=== PATIENT | female | born 1950 | race American Indian/Alaskan Native ===

== ENCOUNTER 2016-10-31 06:35 | Inpatient (IN) | payer MEDICARE ==
[2016-10-31] MEDS ORDERED: XYLOCAINE MPF 2% ONE (08:02)
[2016-10-31] MEDS ORDERED: NEO SYNEPHRINE ONE (08:02)
[2016-10-31] MEDS ORDERED: NACL 0.9% 100 ML ONE (08:02)
[2016-10-31] MEDS ORDERED: ROBINUL ONE ×2 (08:02→13:30)
[2016-10-31] MEDS ORDERED: ZOFRAN ONE (08:02)
[2016-10-31] MEDS ORDERED: SUBLIMAZE ONE (08:03)
[2016-10-31] MEDS ORDERED: DILAUDID ONE (08:03)
[2016-10-31] MEDS ORDERED: VERSED ONE (08:03)
[2016-10-31] MEDS ORDERED: DIPRIVAN 10 MG/ML 1,000 MG/100 ML BOTTLE IV ONE (08:12)
[2016-10-31] MEDS: NACL 0.9% 1000 ML 1,000 ML IV SCH ×2 (08:18→19:11)
--- NOTE | 2016-10-31 08:37 | Anesthesia Day of Surgery ---
Anesthesia Day of Surgery - Day of Surgery Patient Examined: Yes Patient H&P Reviewed: Yes Patient is NPO: Yes Beta Blockers: Yes
--- NOTE | 2016-10-31 08:37 | Anesthesia Consultation ---
Anesthesia Consult and Med Hx Date of service: 10/31/16 - Airway Anesthetic Teeth Evaluation: Poor, Chipped (multiple missing teeth upper and lower), Partials ROM Head & Neck: Adequate Mental/Hyoid Distance: Inadequate Mallampati Class: Class III Intubation Access Assessment: Possibly Difficult - Pulmonary Exam CTA: Yes - Cardiac Exam Cardiac Exam: RRR - Pre-Operative Health Status ASA Pre-Surgery Classification: ASA3 Proposed Anesthetic Plan: MAC - Pulmonary Hx Smoking: No Hx Sleep Apnea: No (high risk) - Cardiovascular System Hx Hypertension: Yes Hx Percutaneous Transluminal Coronary Angioplasty (PTCA): Yes (no stents placed , no CAD observed) Hx Peripheral Vascular Disease: No - Central Nervous System Hx Neuromuscular Disorder: No Hx Psychiatric Problems: No - Gastrointestinal Hx Gastroesophageal Reflux Disease: Yes (moderate ) - Endocrine Hx Renal Disease: No (malignant left kidney cancer) Hx Insulin Dependent Diabetes: No - Hematic Hx Anemia: No Hx Sickle Cell Disease: No - Other Systems Hx Alcohol Use: No Hx Substance Use: No Hx Cancer: Yes (left malignant kidney cancer) Hx Obesity: Yes
[2016-10-31 08:38] LABS: Basophils % (Auto) 1.1 % (0.0-1.8); Eosinophils % (Auto) 2.4 % (0.0-4.3); Hematocrit 36.8 % (30.3-42.9); Hemoglobin 11.9 gm/dl (10.1-14.3); Mean Corpuscular HGB Conc 32 % (30-34); Mean Corpuscular Hemoglobin 28 pg (28-32); Mean Corpuscular Volume 88 fl (79-97); Platelet Count 207 K/mm3 (140-440); Red Blood Count 4.18 M/mm3 (3.65-5.03); Red Cell Distribution Width 14.7 % (13.2-15.2)
[2016-10-31 08:51] LABS: Anion Gap 15 mmol/L; Blood Urea Nitrogen 22 mg/dL (7-17); Calcium 8.9 mg/dL (8.4-10.2); Carbon Dioxide 24 mmol/L (22-30); Glucose 109 mg/dL (65-100); Potassium 3.8 mmol/L (3.6-5.0); Sodium 139 mmol/L (137-145)
[2016-10-31 09:02] LABS: INR 1.03 (0.87-1.13)
[2016-10-31 09:03] LABS: Partial Thromboplastin Time 32.8 Sec. (24.2-36.6)
[2016-10-31] MEDS ORDERED: LEVAQUIN 500MG/100ML 500 MG/100 ML BAG IV ONE (09:14)
[2016-10-31] MEDS ORDERED: LEVAQUIN 500MG/100ML 500 MG/100 ML BAG IV NR (10:00)
[2016-10-31] MEDS ORDERED: DECADRON ONE (13:00)
[2016-10-31] MEDS ORDERED: PROAIR IH ONE (13:00)
[2016-10-31] MEDS ORDERED: NEOSTIGMINE ONE (13:30)
[2016-10-31] MEDS ORDERED: ePHEDrine SULFATE ONE (13:32)
--- NOTE | 2016-10-31 13:34 | Short Stay Summary ---
Short Stay Documentation Date of service: 10/31/16 Narrative H&P: 66 year old female with left-sided small renal cell carcinoma who presents for percutaneous cryotherapy of the left RCC. - History H&P: obtained from office - Allergies and Medications Current Medications: Allergies No Known Allergies Allergy (Verified 10/31/16 08:01) Home Medications Medication Instructions Recorded Confirmed Last Taken Type AtorvaSTATin [Lipitor] 80 mg PO DAILY 10/31/16 10/31/16 10/31/16 History Hydralazine HCl [Apresoline TAB] 100 mg PO BID 10/31/16 10/31/16 10/31/16 History Metoprolol Tartrate [Metoprolol 100 mg PO BID 10/31/16 10/31/16 10/31/16 History Tartrate] Sertraline HCl [Zoloft] 100 mg PO DAILY 10/31/16 10/31/16 10/31/16 History cloNIDine [Catapres] 0.1 mg PO BID 10/31/16 10/31/16 10/31/16 History Active Medications Sodium Chloride (Nacl 0.9% 1000 Ml) 1,000 mls @ 42 mls/hr IV DIRECT [facility] Last Admin: 10/31/16 08:18 Dose: 42 mls/hr - Physical exam General appearance: no acute distress HEENT: EOMI Lungs: Normal air movement Gastrointestinal: normal - Brief post op/procedure progress note Date of procedure: 10/31/16 Pre-op diagnosis: Left RCC Post-op diagnosis: same Procedure: Percutaneous CT-guided cryoablation of the left renal cell carcinoma Anesthesia: GETA Surgeon: ISABELL VIDAL Estimated blood loss: minimal Condition: stable - Hospital course Hospital course: 66-year-old female status post left percutaneous CT-guided cryoablation of the left RTC. Will be admitted overnight for to assess for any postoperative issues such as bleeding. Patient tolerated the procedure without issue. No perinephric hematoma on CT on postprocedural imaging. Dr. Dillard saw the patient who was without any significant acute distress. Some mild expected pain. Discharged without issue with post ablation antiemetics , pain medication, and antibiotics. - Disposition Condition at discharge: Stable Disposition: [id number] TO HOME OR SELFCARE - Discharge Diagnoses (1) Renal cell carcinoma of left kidney Status: Acute Short Stay Discharge Plan Activity: advance as tolerated Weight Bearing Status: Weight Bear as Tolerated Diet: renal Wound: keep clean and dry Follow up with: PRIYA COBURN MD [Primary Care Provider] - 7 Days Prescriptions: Ciprofloxacin HCl [Ciprofloxacin TAB] 500 mg PO Q12HR #14 tab Docusate Sodium [Colace] 100 mg PO BID #40 capsule Ondansetron [Zofran Odt] 4 mg PO Q8HR #60 tab.rapdis oxyCODONE /ACETAMINOPHEN [Percocet 5/325 mg] 1 tab PO Q6HR PRN #60 tablet PRN Reason: Pain Promethazine [Phenergan] 25 mg VA Q6HR PRN #60 supp.rect PRN Reason: Nausea Sennosides [Senna] 8.6 mg PO BID #40 tablet
--- NOTE | 2016-10-31 13:37 | Operative Report ---
Operative Report Operative Report: EXAM: 1. Percutaneous CT-guided cryoablation of a left-sided renal cell carcinoma DATE: 10/31/16 [employer]IV[employer] ENGINEERING PROJECT DESIGNER: ISABELL VIDAL MD INDICATION: Left-sided renal cell carcinoma measuring approximately 2 cm in diameter on CT scan who presents for percutaneous therapy of the left-sided renal cell carcinoma. ANESTHESIA: GETA MEDICATIONS: Please see nursing report for full details. DEVICES: 1. IcePearl 2.1 CX 90 needle 2. IceSphere 90 needle CONTRAST: None. PROCEDURE: The risks, benefits, and alternatives were discussed with the patient and her ; written informed consent was obtained. The patient was brought to the CT suite in stable condition. She was then intubated by anesthesiology, and positioned in a prone position on the CT gantry table. The grid was applied to the left flank and the renal cell carcinoma was identified using CT guidance. Localization lead process engineer CT was performed. This is performed for localization purposes, and not for diagnostic purposes. The area was prepped and draped in a sterile fashion. The skin was anesthetized with lidocaine. 22-gauge Chiba needle was used to identify the correct positioning to access the left-sided renal cell carcinoma. Using tandem trocar technique, an IcePearl prior ablation probe was advanced under direct CT guidance into the left-sided renal cell carcinoma. An additional cryoablation probe, the IceSphere ablation probe, was advanced under direct CT guidance into the left-sided renal cell carcinoma. After appropriately surrounding the lesion with the cryoablation probes, CT was performed confirming appropriate position. CT was performed demonstrating no evidence of perinephric hemorrhage. 10 minute active freezing was performed with both probes, and CT imaging was obtained during the active freeze demonstrating appropriate size of the ice ball. 15 minute passive thaw was allowed to occur. 10 minute active freezing was again performed with both probes and CT imaging was obtained during the active freeze demonstrating appropriate size of the ice ball. 15 minute active thaw was allowed to occur and cauterization was performed through the ablation probes. Afterwards, both probes were removed. CT was obtained demonstrating no evidence of perinephric hemorrhage. The patient tolerated the procedure well. No immediate postprocedural complication. FINDINGS: Successful cryoablation of the left-sided renal cell carcinoma using 2 cryoablation probes as described above. IMPRESSION: Successful cryoablation of the left-sided renal cell carcinoma using 2 cryoablation probes as described above.
[2016-10-31] MEDS ORDERED: DULCOLAX PR PRN (13:38)
[2016-10-31] MEDS ORDERED: ZOFRAN IV PRN (13:38)
[2016-10-31] MEDS ORDERED: MILK OF MAGNESIA PO PRN (13:38)
[2016-10-31] MEDS ORDERED: TYLENOL PO PRN (13:38)
[2016-10-31] MEDS ORDERED: NORCO 5/325 PO PRN (13:38)
--- NOTE | 2016-10-31 14:22 | Post Anesthesia Evaluation ---
- Post Anesthesia Evaluation Patient Participated: Yes Airway Patent: Yes Stable Respiratory Function: Yes Nausea/Vomiting: No Temp > 96.8F: Yes Pain Manageable: Yes Adequeate Hydration: Yes Anesthesia Complications: No Block Receding Appropriately: Not Applicable Patient on Ventilator: No
[2016-10-31] MEDS: COLACE PO SCH ×2 (17:42→22:16)
[2016-10-31] MEDS ORDERED: METOPROLOL TARTRATE 100 MG PO SCH (22:00)
[2016-10-31] MEDS ORDERED: HYDRALAZINE HCL 100 MG PO SCH (22:00)
[2016-10-31] MEDS: SENOKOT PO SCH (22:16)
[2016-10-31] MEDS: LOPRESSOR PO SCH (22:16)
[2016-10-31] MEDS: CATAPRES PO SCH (22:16)
[2016-10-31] MEDS: APRESOLINE PO SCH (22:17)
[2016-11-01 06:31] LABS: Hematocrit 37.2 % (30.3-42.9); Hemoglobin 11.9 gm/dl (10.1-14.3)
[2016-11-01] MEDS: SENOKOT PO SCH (09:17)
[2016-11-01] MEDS: LOPRESSOR PO SCH (09:17)
[2016-11-01] MEDS: APRESOLINE PO SCH (09:18)
[2016-11-01] MEDS: CATAPRES PO SCH (09:18)
[2016-11-01] MEDS: COLACE PO SCH (09:18)
[2016-11-01] MEDS ORDERED: SERTRALINE HCL 100 MG PO SCH (10:00)
[2016-11-01] MEDS ORDERED: ZOLOFT PO SCH (10:00)
--- NOTE | 2016-11-01 10:03 | Consultation ---
History of Present Illness - Reason for Consult Consult date: 11/01/16 Hypertension, s/p left renal cell ca Percutaneous cryotherapy Requesting physician: ISABELL VIDAL - History of Present Illness 66-year-old -Russian female with past medical history significant for hypertension, hyperlipidemia, CAD, left renal cell ca admitted yesterday after she has Perutaneous cryotherapy of the left renal cell ca. patient tolerated the procedure well, no pain, no bleeding. Blood pressure is well-controlled. Patient said her medications are updated. She is medically stable. REVIEW OF SYSTEMS: GENERAL: no weight change, no fatigue, no fever HEAD: no head ache EYES: no blurry vision, no acute visual loss EARS: no hearing loss, no discharge, no earache NOSE: no stuffiness, no sneezing, no discharge MOUTH, THROAT AND NECK: no bleeding gums, no sore throat, no swollen neck CARDIAC: no palpitations, no dyspnea on exertion, no orthopnea, no PND, no edema , no chest pain RESPIRATORY: no shortness of breath, no wheeze, no cough, no sputum, no hemoptysis, no asthma GI: no decreased appetite, no nausea, no vomiting, no dysphagia, no diarrhea, no constipation, no abdominal pain URINARY: no change in frequency, no urgency, no polyuria, no hematuria, no incontinence MUSCULOSKELETAL: no muscle weakness, no pain, no joint stiffness NEUROLOGIC: no loss of sensation/numbness, no tingling, no tremors, no weakness/ paralysis HEMATOLOGIC: no anemia, no easy bruising SKIN: no rashes ENDOCRINE: no heat/cold intolerance, no polyuria, no polydipsia, no thyroid problems, no diabetes PSYCHIATRIC: no anxiety, no depression, no suicidal ideations Past History Past Medical History: CAD, cancer, hypertension, hyperlipidemia Past Surgical History: Other Social history: full code. denies: smoking, alcohol abuse, prescription drug abuse, IV drug use Family history: cancer (Sister has liver cancer) Medications and Allergies Allergies Allergy/AdvReac Type Severity Reaction Status Date / Time No Known Allergies Allergy Verified 10/31/16 08:01 Home Medications Medication Instructions Recorded Confirmed Last Taken Type AtorvaSTATin [Lipitor] 80 mg PO DAILY 10/31/16 10/31/16 10/31/16 History Ciprofloxacin HCl [Ciprofloxacin 500 mg PO Q12HR #14 tab 10/31/16 Unknown Rx TAB] Docusate Sodium [Colace] 100 mg PO BID #40 capsule 10/31/16 Unknown Rx Hydralazine HCl [Apresoline TAB] 100 mg PO BID 10/31/16 10/31/16 10/31/16 History Metoprolol Tartrate [Metoprolol 100 mg PO BID 10/31/16 10/31/16 10/31/16 History Tartrate] Ondansetron [Zofran Odt] 4 mg PO Q8HR #60 tab.rapdis 10/31/16 Unknown Rx Promethazine [Phenergan] 25 mg SC Q6HR PRN #60 supp.rect 10/31/16 Unknown Rx Sennosides [Senna] 8.6 mg PO BID #40 tablet 10/31/16 Unknown Rx Sertraline HCl [Zoloft] 100 mg PO DAILY 10/31/16 10/31/16 10/31/16 History cloNIDine [Catapres] 0.1 mg PO BID 10/31/16 10/31/16 10/31/16 History oxyCODONE /ACETAMINOPHEN [Percocet 1 tab PO Q6HR PRN #60 tablet 10/31/16 Unknown Rx 5/325 mg] Active Meds: Active Medications Acetaminophen (Tylenol) 650 mg PO Q4H PRN PRN Reason: Pain MILD(1-3)/Fever >100.5/BROWN Last Admin: 10/31/16 19:36 Dose: 650 mg Acetaminophen/Hydrocodone Bitart ([place] 5/325) 2 each PO Q6H PRN PRN Reason: Pain, Moderate (4-6) Atorvastatin Calcium (Lipitor) 80 mg PO DAILY [facility] Last Admin: 11/01/16 09:00 Dose: 80 mg Bisacodyl (Dulcolax) 10 mg SC QDAY PRN PRN Reason: Constipation unrelieved by MOM Clonidine HCl (Catapres) 0.1 mg PO BID [facility] Last Admin: 11/01/16 09:18 Dose: 0.1 mg Docusate Sodium (Colace) 100 mg PO BID [facility] Last Admin: 11/01/16 09:18 Dose: 100 mg Hydralazine HCl (Apresoline) 100 mg PO BID [facility] Last Admin: 11/01/16 09:18 Dose: 100 mg Sodium Chloride (Nacl 0.9% 1000 Ml) 1,000 mls @ 42 mls/hr IV DIRECT [facility] Last Admin: 10/31/16 19:11 Dose: 42 mls/hr Magnesium Hydroxide (Milk Of Magnesia) 30 ml PO Q4H PRN PRN Reason: Constipation Metoprolol Tartrate (Lopressor) 100 mg PO BID [facility] Last Admin: 11/01/16 09:17 Dose: 100 mg Ondansetron HCl (Zofran) 4 mg IV Q4H PRN PRN Reason: Nausea Senna (Senokot) 8.6 mg PO Q12HR [facility] Last Admin: 11/01/16 09:17 Dose: 8.6 mg Sertraline HCl (Zoloft) 100 mg PO DAILY [facility] Last Admin: 11/01/16 09:19 Dose: 100 mg Exam - Physical Exam Narrative exam: Not in cardiopulmonary distress. The patient is obese. Vital signs as documented. Head exam is unremarkable. No scleral icterus . Neck is without jugular venous distension, thyromegaly, or carotid bruits. Lungs are clear to auscultation. Cardiac exam reveals regular rate and Rhythm. Abdominal exam reveals normal bowel sounds, no masses, no organomegaly and no aortic enlargement. Extremities are nonedematous and both femoral and pedal pulses are normal. DISCHARGE RN: Alert and oriented 3. No focal weakness. - Constitutional Vitals: Temp Pulse Resp BP Pulse Ox 98.5 F 62 16 170/78 94 11/01/16 07:53 11/01/16 09:45 11/01/16 07:53 11/01/16 09:18 11/01/16 09:45 Results - Labs CBC & Chem 7: 11/01/16 05:18 10/31/16 08:30 Assessment and Plan Well consulted for management of her medical condition Status post percutaneous cryotherapy of the left renal CA - Patient tolerated the procedure well - Vascular surgery did the procedure and will follow her Hypertension - Blood pressure is well controlled on her home blood pressure medication - Continue with the same management, she has enough refills of her medications Hyperlipidemia - Continue statin Patient is medically stable Will sign off, Thank you for the consult. Call me if you have questions.
[2016-11-01 12:28] VITALS: BP 162/74
== END 2016-11-01 13:38 | disposition home or self-care (01) | DRG 658 ==
LOC: OPU 06:35 → 4A 13:38
PROVIDERS: ADMIT Radiology Diagnostic Radiology; ATTEND Radiology Diagnostic Radiology
PROC: 0T513ZZ Destruction of Left Kidney, Percutaneous Approach (ICD-10-PCS; principal; 2016-10-31)
DX: C64.2 Malignant neoplasm of left kidney, except renal pelvis (principal); I10 Essential (primary) hypertension; K21.9 Gastro-esophageal reflux disease without esophagitis; E78.5 Hyperlipidemia, unspecified; I25.10 Atherosclerotic heart disease of native coronary artery without angina pectoris; Z80.8 Family history of malignant neoplasm of other organs or systems
CPT/HCPCS: 36415; 50593; 77013; 80048; 85014; 85018; 85025; 85610; 85730; 96365; A9270-GY; J1100; J1170; J1956; J2250; J2370; J2405; J2704; J2710; J3010; J7030